=== PATIENT | female | born 1960 | race Caucasian/White ===

== ENCOUNTER 2021-08-13 18:37 | Emergency (ER) | payer SELFPAY ==
[~2021-08-13] VITALS: Ht 160 cm; Wt 58.1 kg
[2021-08-13 19:04] LABS: HEMOGLOBIN 12.7 gm/dl (12.3-15.3); RED BLOOD COUNT 4.39 M/UL (4.00-5.10); WHITE BLOOD COUNT 5.8 K/UL (4.5-11.0)
== END 2021-08-13 23:20 | disposition short-term general hospital (02) ==
LOC: ER1 18:37
PROVIDERS: Preventive Medicine Occupational Medicine
DX: I61.9 Nontraumatic intracerebral hemorrhage, unspecified (principal); R41.82 Altered mental status, unspecified; Z20.822 Contact with and (suspected) exposure to COVID-19
CPT/HCPCS: 31500; 36600; 51702; 70450; 71045; 80307; 81001; 82550; 82553; 82803; 83605; 83690; 83874; 83880; 84484; 85025; 85610; 85652; 85730; 86140; 87086; 93005; 94002; 94760; 96374; 96375; 99285; J0330; J1953; J2250; J2310; J2704; J7168; U0002

== ENCOUNTER 2022-04-26 05:48 | Emergency (ER) | payer MEDICARE | END 2022-04-26 10:17 | disposition home or self-care (01) | LOC: ER1 05:48 | DX: Z43.1 Encounter for attention to gastrostomy (principal) | CPT/HCPCS: 43762; 74018; 99283; Q9963 ==